=== PATIENT | female | born 1990 ===

== ENCOUNTER 2021-12-19 17:01 | Emergency (ER) | payer SELFPAY ==
[2021-12-19] MEDS ORDERED: Take Home: traMADol 50 MG, 4 Tab Pack PO ONE (17:45)
== END 2021-12-19 17:54 | disposition home or self-care (01) ==
LOC: VM.ED 17:01
DX: S43.101A Unspecified dislocation of right acromioclavicular joint, initial encounter (principal); W10.9XXA Fall (on) (from) unspecified stairs and steps, initial encounter
CPT/HCPCS: 99283; A9270-GY